=== PATIENT | female | born 1960 | race American Indian/Alaskan Native ===

== ENCOUNTER 2017-09-29 09:19 | Day surgery (SDC) | payer MEDICARE ==
[2017-09-29] MEDS ORDERED: NACL 0.9% 1000 ML 1,000 ML ONE (09:59)
[2017-09-29] MEDS ORDERED: DIPRIVAN 10 MG/ML IV ONE ×2 (10:39)
--- NOTE | 2017-09-29 10:41 | Anesthesia Consultation ---
Anesthesia Consult and Med Hx Date of service: 09/29/17 - Airway Anesthetic Teeth Evaluation: Good ROM Head & Neck: Adequate Mental/Hyoid Distance: Adequate Mallampati Class: Class II Intubation Access Assessment: Probably Good - Pre-Operative Health Status ASA Pre-Surgery Classification: ASA3 Proposed Anesthetic Plan: General - Pulmonary Hx Smoking: Yes Hx Asthma: Yes Hx Sleep Apnea: Yes - Cardiovascular System Hx Hypertension: Yes - Hematic Hx Anemia: Yes (resolved) - Other Systems Hx Cancer: No Hx Obesity: Yes - Additional Comments Anesthesia Medical History Comments: NAC
--- NOTE | 2017-09-29 10:41 | Anesthesia Day of Surgery ---
Anesthesia Day of Surgery - Day of Surgery Patient Examined: Yes Patient H&P Reviewed: Yes Patient is NPO: Yes
--- NOTE | 2017-09-29 10:45 | Short Stay Summary ---
Short Stay Documentation Date of service: 09/29/17 Narrative H&P: 57 year old with personal history of colon polyps presenting for surveillance colonoscopy. - History Principal diagnosis: history polyps H&P: obtained from office Past Medical History: anemia, COPD (asthma), other (arthritis, anxiety, obesity , colon polyps) Past Surgical History: No surgical history - Allergies and Medications Current Medications: Allergies SEAFOOD Allergy (Uncoded 09/29/17 09:22) ITCHING, THROAT CLOSES., HIVES PT STATES THAT SHE IS ALLERGIC TO CRABS AND LOBSTER ONLY Home Medications Medication Instructions Recorded Confirmed Last Taken Type ALPRAZolam [Xanax] 1 tab PO DAILY 09/29/17 09/29/17 09/28/17 09:00 History Ibuprofen [Ibuprofen] 1 tab PO PRN PRN 09/29/17 09/29/17 09/26/17 17:00 History Montelukast [Singulair] 10 mg PO QPM 09/29/17 09/29/17 09/28/17 09:00 History Sertraline [Zoloft] 100 mg PO QDAY 09/29/17 09/29/17 09/28/17 09:00 History Verapamil HCl [Verapamil ER] 1 tab PO DAILY 09/29/17 09/29/17 09/27/17 21:00 History traMADol [Ultram 50 MG tab] 1 tab PO BID 09/29/17 09/29/17 09/28/17 10:00 History Active Medications Sodium Chloride (Nacl 0.9% 1000 Ml) 1,000 mls @ 50 mls/hr IV DIRECT PB Last Admin: 09/29/17 10:42 Dose: 50 mls/hr - Physical exam General appearance: no acute distress HEENT: PERRLA, EOMI Lungs: Clear to auscultation Heart: Regular rate, Normal S1, Normal S2 Gastrointestinal: normal, obese Neurological: Normal speech - Hospital course Hospital course: Uneventful colonoscopy. - Disposition Condition at discharge: Good Disposition: DC-[id number] TO HOME OR SELFCARE - Discharge Diagnoses (1) Personal history of colonic polyps Status: Acute (2) Diverticulosis Status: Acute (3) Internal hemorrhoids Status: Acute Short Stay Discharge Plan Activity: other (no driving today) Diet: other (may resume usual diet) Additional Instructions: 1. Repeat colonoscopy in 5 years. 2. First-degree relatives (siblings, children) should be informed that polyps run in their family and that they should begin their colon screening at age 40 rather than age 50. Follow up with: ELSA MARSH MD [Primary Care Provider] - 7 Days
[2017-09-29] MEDS ORDERED: NACL 0.9% 1000 ML 1,000 ML IV SCH (11:00)
--- NOTE | 2017-09-29 11:20 | Operative Report ---
Operative Report Operative Report: Date of procedure: 09/29/2017 Preprocedure diagnosis: Personal history of colon polyps Post procedure diagnosis: Diverticulosis and internal hemorrhoids Procedure name(s): Colonoscopy Surgeon: Tunde Garibay MD Anesthesia: Monitored anesthesia care EBL: None Procedure: The indications, techniques, potential complications and alternatives , had been discussed in full detail prior to the date of the exam, and once again on the day of the exam. Questions were encouraged and answered, and consent was thereby obtained. The patient was placed in the left lateral decubitus position, and was medicated by anesthesia services. See the anesthesia records for details. The anal sphincter was digitally dilated. The tip of a [employer] adult video colonoscope was inserted through the anal sphincter and into the rectal vault. It was then advanced proximally under continuous visualization of the lumen to the cecum without difficulty. The prep was adequate. Landmarks were identified without difficulty. No pathology was found in the cecum. The appendiceal orifice and ileocecal valve appeared normal. From the cecum, the instrument was slowly withdrawn with careful circumferential examination of the colonic mucosa. No pathology was seen in the ascending colon. One or 2 small diverticula were seen in the hepatic flexure. No pathology was seen in the transverse colon, splenic flexure or descending colon. Mild to moderate diverticulosis was noted in the sigmoid colon. No polyps were found. The rectum appeared normal from the forward view. Retroflexion in the rectum revealed internal hemorrhoids. No other pathology was found. The instrument was straightened and withdrawn. The procedure was very well tolerated. Postprocedure she was monitored in the recovery area of the GI lab to ensure stability prior to her release. See the outpatient record for details regarding instructions to patient, medications and plans for follow-up. Final diagnosis: 1. Diverticulosis 2. Internal hemorrhoids 3. Otherwise normal colonoscopy to the cecum, no polyp recurrence Colon screening information: Previous colonoscopy 2012, next colonoscopy in 5 years Tunde Garibay M.D. Dictated to 01/11/2018 at 11:16 AM
[2017-09-29 11:38] VITALS: BP 140/89
== END 2017-09-29 09:20 | disposition home or self-care (01) ==
LOC: GIO 09:19
PROVIDERS: ATTEND Internal Medicine Gastroenterology
DX: Z09 Encounter for follow-up examination after completed treatment for conditions other than malignant neoplasm (principal); K57.30 Diverticulosis of large intestine without perforation or abscess without bleeding; K64.8 Other hemorrhoids; J44.9 Chronic obstructive pulmonary disease, unspecified; E66.9 Obesity, unspecified; F41.9 Anxiety disorder, unspecified; F32.9 Major depressive disorder, single episode, unspecified; Z68.43 Body mass index [BMI] 50.0-59.9, adult; Z91.013 Allergy to seafood; Z79.01 Long term (current) use of anticoagulants; Z79.899 Other long term (current) drug therapy
CPT/HCPCS: 45378; J2704; J7030